=== PATIENT | female | born 1985 | race Caucasian/White ===

== ENCOUNTER 2016-09-28 12:17 | Emergency (ER) | payer OTHER ==
[~2016-09-28] VITALS: Ht 160 cm; Wt 88.1 kg
[2016-09-28 12:19] VITALS: BP 136/89
== END 2016-09-28 13:19 | disposition home or self-care (01) ==
LOC: ED 13:11
DX: B34.9 Viral infection, unspecified (principal); Z90.49 Acquired absence of other specified parts of digestive tract
CPT/HCPCS: 99282

== ENCOUNTER 2016-12-02 08:41 | Emergency (ER) | payer OTHER ==
[~2016-12-02] VITALS: Ht 157.5 cm; Wt 87.7 kg
[2016-12-02 10:43] VITALS: BP 134/100
[2016-12-02 11:00] LABS: BLOOD UREA NITROGEN 9 mg/dL (7-18)
== END 2016-12-02 11:40 | disposition home or self-care (01) ==
LOC: ED 11:34
DX: M54.12 Radiculopathy, cervical region (principal)
CPT/HCPCS: 36415; 80048; 82040; 84703; 85025; 93005; 93970; 99285

== ENCOUNTER → 2017-01-13 | Outpatient (CLI) | payer OTHER ==
[2017-01-13 10:40] LABS: ASPARTATE AMINO TRANSFERASE 28 U/L (15-37); BLOOD UREA NITROGEN 7 mg/dL (7-18)
== END | disposition home or self-care (01) ==
LOC: LAB 10:16
PROVIDERS: ATTEND Physician Assistant Medical
DX: R53.83 Other fatigue (principal); M79.606 Pain in leg, unspecified
CPT/HCPCS: 36415; 80053; 84439; 84443; 85025

== ENCOUNTER → 2017-03-30 | Outpatient (CLI) | payer OTHER | END | disposition home or self-care (01) | LOC: CFH 08:22 | DX: N83.201 Unspecified ovarian cyst, right side (principal) | CPT/HCPCS: 36415; 76830; 83001; 83002; 83036; 84146; 84443 ==

== ENCOUNTER 2017-05-29 07:30 | Emergency (ER) | payer OTHER ==
[~2017-05-29] VITALS: Ht 160 cm; Wt 91.2 kg
[2017-05-29 07:32] VITALS: BP 125/87
[2017-05-29] MEDS ORDERED: SODIUM CHLORIDE 0.9% 1,000ML IVBOLUS ONE (08:00)
[2017-05-29 08:33] LABS: HEMATOCRIT 40.5 % (34.6-47.8); HEMOGLOBIN 13.9 g/dL (11.7-16.4); WHITE BLOOD COUNT 5.9 x10^3/uL (3.4-10)
[2017-05-29 08:44] LABS: ASPARTATE AMINO TRANSFERASE 34 U/L (15-37); BLOOD UREA NITROGEN 7 mg/dL (7-18)
== END 2017-05-29 09:59 | disposition home or self-care (01) ==
LOC: ED 08:44
DX: I88.9 Nonspecific lymphadenitis, unspecified (principal)
CPT/HCPCS: 36415; 71020; 80053; 83690; 84702; 84703; 85025; 99285

== ENCOUNTER 2017-06-09 18:25 | Emergency (ER) | payer OTHER ==
[~2017-06-09] VITALS: Ht 157.5 cm; Wt 90.5 kg
[2017-06-09 19:19] LABS: BASOPHILS # (AUTO) 0.07 x10^3/uL (0-0.1); BASOPHILS % (AUTO) 1 % (0-1); EOSINOPHILS # (AUTO) 0.04 x10^3/uL (0-0.4); EOSINOPHILS % (AUTO) 1 % (1-7); LYMPHOCYTES # (AUTO) 2.92 x10^3/uL (1-3.4); LYMPHOCYTES % (AUTO) 38 % (22-44); MD NO; MEAN CORPUSCULAR HEMOGLOBIN 31.6 pg (27.0-34.8); MEAN CORPUSCULAR HGB CONC 34.4 g/dL (32.4-35.8); MEAN CORPUSCULAR VOLUME 91.7 fL (80-100); MEAN PLATELET VOLUME 9.4 fL (7.4-10.4); MONOCYTES # (AUTO) 0.46 x10^3/uL (0.2-0.8); MONOCYTES % (AUTO) 6 % (2-9); NEUTROPHILS # (AUTO) 4.21 x10^3/uL (1.8-6.8); NEUTROPHILS % (AUTO) 55 % (42-75); PLATELET COUNT 315 x10^3/uL (130-400); RED BLOOD COUNT 4.43 x10^6/uL (3.82-5.3); RED CELL DISTRIBUTION WIDTH 13.4 % (9.6-15.2)
[2017-06-09 19:27] LABS: ANION GAP 6 mmol/L (5-15); CALCIUM 8.9 mg/dL (8.5-10.1); CHLORIDE 106 mmol/L (98-107)
[2017-06-09 19:57] LABS: MICROSCOPIC NOT IND
[2017-06-09 20:00] VITALS: BP 120/82
[2017-06-09 20:40] LABS: CULTURE INDICATED? NO
== END 2017-06-09 20:02 | disposition home or self-care (01) ==
LOC: ED 20:00
DX: O03.9 Complete or unspecified spontaneous abortion without complication (principal)
CPT/HCPCS: 36415; 76856; 80048; 81003; 82040; 84702; 85025; 86901; 99285

== ENCOUNTER → 2017-06-19 | Outpatient (CLI) | payer OTHER ==
[2017-06-19 16:00] LABS: BASOPHILS # (AUTO) 0.04 x10^3/uL (0-0.1); BASOPHILS % (AUTO) 1 % (0-1); EOSINOPHILS # (AUTO) 0.03 x10^3/uL (0-0.4); EOSINOPHILS % (AUTO) 0 % (1-7); LYMPHOCYTES # (AUTO) 2.46 x10^3/uL (1-3.4); LYMPHOCYTES % (AUTO) 32 % (22-44); MD NO; MEAN CORPUSCULAR HEMOGLOBIN 31.4 pg (27.0-34.8); MEAN CORPUSCULAR HGB CONC 34.3 g/dL (32.4-35.8); MEAN CORPUSCULAR VOLUME 91.6 fL (80-100); MEAN PLATELET VOLUME 9.3 fL (7.4-10.4); MONOCYTES # (AUTO) 0.44 x10^3/uL (0.2-0.8); MONOCYTES % (AUTO) 6 % (2-9); NEUTROPHILS # (AUTO) 4.64 x10^3/uL (1.8-6.8); NEUTROPHILS % (AUTO) 61 % (42-75); PLATELET COUNT 307 x10^3/uL (130-400); RED BLOOD COUNT 4.48 x10^6/uL (3.82-5.3); RED CELL DISTRIBUTION WIDTH 13.1 % (9.6-15.2)
[2017-06-19 16:11] LABS: ALANINE AMINOTRANSFERASE 50 U/L (12-78); ALBUMIN 3.9 g/dL (3.4-5.0); ANION GAP 8 mmol/L (5-15); CALCIUM 8.5 mg/dL (8.5-10.1); CHLORIDE 107 mmol/L (98-107); CREATININE 0.89 mg/dL (0.55-1.02)
[2017-06-19 16:21] LABS: ALKALINE PHOSPHATASE 79 U/L (45-117); BILIRUBIN,TOTAL 0.6 mg/dL (0.2-1.0); TOTAL PROTEIN 7.1 g/dL (6.4-8.2)
== END ==
LOC: LAB 15:37
DX: R22.0 Localized swelling, mass and lump, head (principal)
CPT/HCPCS: 36415; 80053; 84443; 85025

== ENCOUNTER → 2017-06-29 | Outpatient (CLI) | payer OTHER | END | disposition home or self-care (01) | LOC: CFH 07:51 | DX: R22.0 Localized swelling, mass and lump, head (principal) | CPT/HCPCS: 76536 ==

== ENCOUNTER → 2017-06-29 | Outpatient (CLI) | payer OTHER ==
[2017-06-29 14:18] LABS: BASOPHILS # (AUTO) 0.11 x10^3/uL (0-0.1); BASOPHILS % (AUTO) 1 % (0-1); EOSINOPHILS # (AUTO) 0.05 x10^3/uL (0-0.4); EOSINOPHILS % (AUTO) 1 % (1-7); LYMPHOCYTES # (AUTO) 2.78 x10^3/uL (1-3.4); LYMPHOCYTES % (AUTO) 34 % (22-44); MD NO; MEAN CORPUSCULAR HEMOGLOBIN 31.7 pg (27.0-34.8); MEAN CORPUSCULAR HGB CONC 34.7 g/dL (32.4-35.8); MEAN CORPUSCULAR VOLUME 91.5 fL (80-100); MEAN PLATELET VOLUME 9.6 fL (7.4-10.4); MONOCYTES # (AUTO) 0.45 x10^3/uL (0.2-0.8); MONOCYTES % (AUTO) 6 % (2-9); NEUTROPHILS # (AUTO) 4.79 x10^3/uL (1.8-6.8); NEUTROPHILS % (AUTO) 59 % (42-75); PLATELET COUNT 319 x10^3/uL (130-400); RED BLOOD COUNT 4.47 x10^6/uL (3.82-5.3); RED CELL DISTRIBUTION WIDTH 13.3 % (9.6-15.2)
== END | disposition home or self-care (01) ==
LOC: LAB 13:57
PROVIDERS: ATTEND Specialist
DX: O02.1 Missed abortion (principal)
CPT/HCPCS: 36415; 84702; 85025

== ENCOUNTER 2017-07-06 11:03 | Day surgery (SDC) | payer OTHER ==
[~2017-07-06] VITALS: Ht 160 cm; Wt 90.4 kg
[2017-07-06 11:52] VITALS: BP 124/89
[2017-07-06] MEDS ORDERED: LACTATED RINGERS 1,000 ML IV SCH (12:01)
[2017-07-06] MEDS ORDERED: LIDOCAINE 1%, 2ML ONE (12:10)
[2017-07-06] MEDS ORDERED: MISOPROSTOL 200 MCG TABLET ONE (12:18)
[2017-07-06] MEDS ORDERED: OXYTOCIN 10 UNITS/ML, 1ML ONE (12:18)
[2017-07-06] MEDS ORDERED: METHYLERGONOVINE 0.2 MG/ML IM ONE (12:18)
[2017-07-06] MEDS ORDERED: no home meds (12:26)
[2017-07-06] MEDS ORDERED: LIDOCAINE 1%, 2ML SQ PRN (12:30)
[2017-07-06] MEDS ORDERED: MIDAZOLAM 1 MG/ML, 2ML ONE (13:01)
[2017-07-06] MEDS ORDERED: FENTANYL PF 100 MCG/2ML ONE ×2 (13:01→14:50)
[2017-07-06] MEDS ORDERED: KETOROLAC 30 MG/1 ML ONE (13:58)
[2017-07-06] MEDS ORDERED: PROPOFOL 10 MG/ML, 20ML ONE (14:16)
[2017-07-06] MEDS ORDERED: DEXAMETHASONE 4 MG/ML, 1ML ONE (14:16)
[2017-07-06] MEDS ORDERED: ONDANSETRON 2MG/ML, 2ML ONE (14:16)
[2017-07-06] MEDS ORDERED: ACETAMINOPHEN 650 MG/20.3 ML UDC ONE (14:50)
[2017-07-06] MEDS ORDERED: OXYcodone 5 MG/5 ML ORAL.SOL UDC ONE (14:50)
[2017-07-06] MEDS: FENTANYL PF 100 MCG/2ML IV PRN ×2 (14:52→15:33)
[2017-07-06] MEDS ORDERED: ALBUTEROL SULFATE 2.5 MG/3 ML NPPB PRN (15:00)
[2017-07-06] MEDS ORDERED: ONDANSETRON 2MG/ML, 2ML IVPush PRN (15:00)
[2017-07-06] MEDS ORDERED: HYDROcodone/APAP 7.5-325MG/15ML UDC PO PRN (15:00)
[2017-07-06] MEDS ORDERED: ACETAMINOPHEN 325 MG TABLET PO PRN (15:00)
[2017-07-06] MEDS ORDERED: METOPROLOL 1 MG/ML, 5ML IV PRN (15:00)
[2017-07-06] MEDS ORDERED: OXYcodone 5 MG/5 ML ORAL.SOL UDC PO PRN (15:00)
[2017-07-06] MEDS ORDERED: hydrALAzine 20 MG/ML, 1ML IV PRN (15:00)
[2017-07-06] MEDS ORDERED: MIDAZOLAM 1 MG/ML, 2ML IV PRN (15:00)
[2017-07-06] MEDS ORDERED: EPHEDRINE 50 MG/ML, 1ML IVPush PRN (15:00)
[2017-07-06] MEDS ORDERED: LABETALOL 5MG/ML, 20ML IV PRN (15:00)
[2017-07-06] MEDS ORDERED: HYDROmorphone 1 MG/ML, 1ML IV PRN (15:00)
[2017-07-06] MEDS ORDERED: PROMETHAZINE 25 MG/ML, 1ML IV PRN (15:00)
[2017-07-06] MEDS ORDERED: MEPERIDINE/PF 25MG/0.5ML IVPush PRN (15:00)
[2017-07-06] MEDS ORDERED: DIAZEPAM 5 MG/ML, 2ML IVPush PRN (15:00)
== END 2017-07-06 17:30 ==
LOC: OUT 11:03
PROVIDERS: ATTEND Specialist
DX: N85.00 Endometrial hyperplasia, unspecified (principal)
CPT/HCPCS: 58120; 88305; J1100; J1885; J2250; J2405; J2590; J2704; J3010; J3490; J7120; J2210

== ENCOUNTER 2017-08-09 17:13 | Emergency (ER) | payer OTHER ==
[~2017-08-09] VITALS: Ht 157.5 cm; Wt 89.5 kg
[~2017-08-09 17:13] MED LIST: no home meds
[2017-08-09] MEDS ORDERED: SODIUM CHLORIDE 0.9% 1,000ML IVBOLUS ONE (18:00)
[2017-08-09 18:23] LABS: RAPID INFLUENZA A POSITIVE (Negative); RAPID INFLUENZA B Negative (Negative)
[2017-08-09 18:23] LABS: BASOPHILS # (AUTO) 0.03 x10^3/uL (0-0.1); BASOPHILS % (AUTO) 1 % (0-1); EOSINOPHILS # (AUTO) 0.05 x10^3/uL (0-0.4); EOSINOPHILS % (AUTO) 1 % (1-7); LYMPHOCYTES # (AUTO) 1.61 x10^3/uL (1-3.4); LYMPHOCYTES % (AUTO) 34 % (22-44); MD NO; MEAN CORPUSCULAR HEMOGLOBIN 31.6 pg (27.0-34.8); MEAN CORPUSCULAR HGB CONC 34.5 g/dL (32.4-35.8); MEAN CORPUSCULAR VOLUME 91.6 fL (80-100); MEAN PLATELET VOLUME 9.6 fL (7.4-10.4); MONOCYTES % (AUTO) 9 % (2-9); NEUTROPHILS # (AUTO) 2.62 x10^3/uL (1.8-6.8); NEUTROPHILS % (AUTO) 56 % (42-75); PLATELET COUNT 302 x10^3/uL (130-400); RED CELL DISTRIBUTION WIDTH 13.6 % (9.6-15.2)
[2017-08-09 18:30] LABS: ALBUMIN 3.9 g/dL (3.4-5.0); ANION GAP 8 mmol/L (5-15); CALCIUM 8.4 mg/dL (8.5-10.1); CHLORIDE 106 mmol/L (98-107); CREATININE 1.12 mg/dL (0.55-1.02)
[2017-08-09] MEDS ORDERED: ONDANSETRON 2MG/ML, 2ML ONE (19:29)
[2017-08-09] MEDS ORDERED: OSELTAMIVIR 75 MG CAPSULE PO ONE (19:30)
[2017-08-09] MEDS ORDERED: ONDANSETRON 2MG/ML, 2ML IVPush ONE (19:30)
[2017-08-09 20:38] LABS: MICROSCOPIC AUTO
[2017-08-09 20:39] LABS: CULTURE INDICATED? NO
[2017-08-09 21:14] VITALS: BP 114/73
== END 2017-08-09 21:21 | disposition home or self-care (01) ==
LOC: ED 21:15
DX: J10.1 Influenza due to other identified influenza virus with other respiratory manifestations (principal); J06.9 Acute upper respiratory infection, unspecified
CPT/HCPCS: 36415; 71046; 80048; 81001; 82040; 84703; 85025; 87400; 96361; 96374; 99285; J2405; J7030

== ENCOUNTER 2017-12-05 11:18 | Emergency (ER) | payer OTHER ==
[~2017-12-05] VITALS: Ht 160 cm; Wt 90.3 kg
[2017-12-05 11:56] VITALS: BP 111/68
[2017-12-05 12:11] LABS: MICROSCOPIC AUTO
[2017-12-05 12:12] LABS: BASOPHILS # (AUTO) 0.04 x10^3/uL (0-0.1); BASOPHILS % (AUTO) 1 % (0-1); EOSINOPHILS # (AUTO) 0.06 x10^3/uL (0-0.4); EOSINOPHILS % (AUTO) 1 % (1-7); LYMPHOCYTES # (AUTO) 1.98 x10^3/uL (1-3.4); LYMPHOCYTES % (AUTO) 29 % (22-44); MD NO; MEAN CORPUSCULAR HEMOGLOBIN 31.4 pg (27.0-34.8); MEAN CORPUSCULAR HGB CONC 34.3 g/dL (32.4-35.8); MEAN CORPUSCULAR VOLUME 91.7 fL (80-100); MEAN PLATELET VOLUME 10.1 fL (7.4-10.4); MONOCYTES # (AUTO) 0.44 x10^3/uL (0.2-0.8); MONOCYTES % (AUTO) 7 % (2-9); NEUTROPHILS # (AUTO) 4.36 x10^3/uL (1.8-6.8); NEUTROPHILS % (AUTO) 63 % (42-75); PLATELET COUNT 265 x10^3/uL (130-400); RED BLOOD COUNT 4.33 x10^6/uL (3.82-5.3); RED CELL DISTRIBUTION WIDTH 13.4 % (9.6-15.2)
[2017-12-05 12:16] LABS: CULTURE INDICATED? YES
[2017-12-05 12:23] LABS: ALANINE AMINOTRANSFERASE 55 U/L (12-78); ALBUMIN 3.5 g/dL (3.4-5.0); ANION GAP 6 mmol/L (5-15); CALCIUM 8.4 mg/dL (8.5-10.1); CHLORIDE 108 mmol/L (98-107); CREATININE 0.86 mg/dL (0.55-1.02)
[2017-12-05 12:28] LABS: ALKALINE PHOSPHATASE 91 U/L (45-117); BILIRUBIN,TOTAL 0.5 mg/dL (0.2-1.0); TOTAL PROTEIN 6.8 g/dL (6.4-8.2)
== END 2017-12-05 13:28 | disposition home or self-care (01) ==
LOC: ED 12:26
DX: R10.32 Left lower quadrant pain (principal); R42 Dizziness and giddiness
CPT/HCPCS: 36415; 80053; 81001; 83690; 84703; 85025; 87086; 87147; 93005; 99285

== ENCOUNTER → 2018-03-13 | Outpatient (CLI) | payer OTHER | END | disposition home or self-care (01) | LOC: CFH 09:32 | PROVIDERS: ATTEND Specialist | DX: Z32.01 Encounter for pregnancy test, result positive (principal) | CPT/HCPCS: 36415; 84702 ==

== ENCOUNTER 2018-08-11 19:11 | Emergency (ER) | payer OTHER ==
[~2018-08-11] VITALS: Ht 165.1 cm; Wt 90.9 kg
[2018-08-11] MEDS ORDERED: SODIUM CHLORIDE FLUSH 10ML SYR IVF ONE ×2 (20:00→21:30)
[2018-08-11] MEDS ORDERED: ACETAMINOPHEN 500 MG TABLET PO ONE (20:00)
--- NOTE | 2018-08-11 20:00 | NUR ---
PT A&OX4, RESP EVEN & UNLABORED, SPEECH CLEAR, SKIN WNL. C/O FEVER, CHILLS, NAUSEA - STARTED YESTERDAY. TYLENOL - LAST DOSE YESTERDAY, ADVIL 600MG - LAST DOSE 1400 TODAY. LMP: 07/16/18
--- NOTE | 2018-08-11 20:04 | NUR ---
EKG BS. PT'S SPOUSE IN ROOM.
[2018-08-11 20:09] LABS: RAPID INFLUENZA A Negative (Negative); RAPID INFLUENZA B Negative (Negative)
--- NOTE | 2018-08-11 20:10 | NUR ---
LABS DRAWN. PT RESTING ON GURNEY W/ SIDE RAILS UP X2, CALL LIGHT W/IN REACH, EMESIS BAG ON LAP, SPOUSE IN ROOM.
[2018-08-11] MEDS ORDERED: ACETAMINOPHEN 500 MG TABLET ONE (20:13)
[2018-08-11 20:20] LABS: BASOPHILS # (AUTO) 0.02 x10^3/uL (0-0.1); BASOPHILS % (AUTO) 0 % (0-1); EOSINOPHILS % (AUTO) 0 % (1-7); LYMPHOCYTES # (AUTO) 0.87 x10^3/uL (1-3.4); LYMPHOCYTES % (AUTO) 10 % (22-44); MD NO; MEAN CORPUSCULAR HEMOGLOBIN 30.9 pg (27.0-34.8); MEAN CORPUSCULAR HGB CONC 33.7 g/dL (32.4-35.8); MEAN CORPUSCULAR VOLUME 91.5 fL (80-100); MEAN PLATELET VOLUME 9.8 fL (7.4-10.4); MONOCYTES # (AUTO) 0.18 x10^3/uL (0.2-0.8); MONOCYTES % (AUTO) 2 % (2-9); NEUTROPHILS % (AUTO) 88 % (42-75); PLATELET COUNT 223 x10^3/uL (130-400); RED BLOOD COUNT 4.45 x10^6/uL (3.82-5.3); RED CELL DISTRIBUTION WIDTH 13.3 % (9.6-15.2)
[2018-08-11 20:26] LABS: ALANINE AMINOTRANSFERASE 120 U/L (12-78); ALBUMIN 3.3 g/dL (3.4-5.0); ANION GAP 6 mmol/L (5-15); CALCIUM 7.9 mg/dL (8.5-10.1); CHLORIDE 110 mmol/L (98-107)
[2018-08-11 20:28] LABS: ALKALINE PHOSPHATASE 158 U/L (45-117); BILIRUBIN,TOTAL 0.7 mg/dL (0.2-1.0); TOTAL PROTEIN 6.7 g/dL (6.4-8.2)
[2018-08-11] MEDS ORDERED: ONDANSETRON 2MG/ML, 2ML ONE (21:16)
[2018-08-11] MEDS ORDERED: KETOROLAC 30 MG/1 ML ONE (21:28)
[2018-08-11] MEDS ORDERED: SODIUM CHLORIDE 0.9%, 500ML IVBOLUS ONE (21:30)
[2018-08-11] MEDS ORDERED: KETOROLAC 30 MG/1 ML IVPush ONE (21:30)
[2018-08-11] MEDS ORDERED: ONDANSETRON 2MG/ML, 2ML IVPush ONE (21:30)
[2018-08-11] MEDS ORDERED: SODIUM CHLORIDE 0.9% 1,000ML IVBOLUS ONE (21:30)
[2018-08-11 21:42] LABS: CULTURE INDICATED? YES; MICROSCOPIC INDICATED
--- NOTE | 2018-08-11 21:50 | NUR ---
TO CT PER CHITRA
[2018-08-11] MEDS ORDERED: CEFTRIAXONE PMX 1GM/50ML 50 ML IV ONE (22:00)
--- NOTE | 2018-08-11 22:03 | NUR ---
PT REPORT TO [facility]. PT CARE TRANSFERRED.
--- NOTE | 2018-08-11 22:05 | NUR ---
PT REPORT FROM CATHERINE ANDRES. THIS RN TO ASSUME CARE. PT IN CT. WILL HANG ABX PER MAR AFTER CT.
[2018-08-11] MEDS ORDERED: CEFTRIAXONE PMX 1GM/50ML 50 ML ONE (22:16)
[2018-08-11] MEDS ORDERED: OMNIPAQUE 350 MG/ML, 100ML BOTTLE ONE (22:31)
[2018-08-11 22:51] VITALS: BP 128/73
== END 2018-08-11 23:36 | disposition home or self-care (01) ==
LOC: ED 21:31
DX: N39.0 Urinary tract infection, site not specified (principal); B34.9 Viral infection, unspecified; R50.9 Fever, unspecified; R11.10 Vomiting, unspecified; R19.7 Diarrhea, unspecified
CPT/HCPCS: 36415; 71045; 71275; 74177; 80053; 81001; 84703; 85025; 87086; 87400; 93005; 96361; 96365; 96375; 99284; J0696; J1885; J7030; J7040; Q9967

== ENCOUNTER → 2018-10-11 | Outpatient (CLI) | payer OTHER | END | disposition home or self-care (01) | LOC: LAB 09:27 | PROVIDERS: ATTEND Obstetrics & Gynecology Reproductive Endocrinology | DX: E28.9 Ovarian dysfunction, unspecified (principal); E23.6 Other disorders of pituitary gland | CPT/HCPCS: 36415; 82397; 82670; 83001; 83002; 84146; 84443; 86762; 86900 ==

== ENCOUNTER → 2018-11-02 | Outpatient (CLI) | payer OTHER | END | disposition home or self-care (01) | LOC: LAB 07:54 | PROVIDERS: ATTEND Obstetrics & Gynecology Reproductive Endocrinology | DX: N91.2 Amenorrhea, unspecified (principal) | CPT/HCPCS: 36415; 84702 ==

== ENCOUNTER 2019-07-24 14:45 | Emergency (ER) | payer OTHER ==
[~2019-07-24] VITALS: Ht 160 cm; Wt 94.2 kg
[2019-07-24 15:24] LABS: HCG UR SG 1.021 (1.003-1.030); MICROSCOPIC NOT IND
[2019-07-24 15:28] LABS: CULTURE INDICATED? NO
--- NOTE | 2019-07-24 17:16 | NUR ---
FLOOR SANDER: NOT IN LOBBY @ [id number]
--- NOTE | 2019-07-24 20:51 | NUR ---
THIS IS A 34 YO FEMALE COMING IN FOR RLQ ABD PAIN RADIATED DOWN RIGHT LEG AND LOWER BACK PAIN RATED 10/10. PATIENT HAD UA COMPLETED WHILE WAITING IN [facility] AND HAD POSITIVE TEST, PATIENT IS A , PATIENT HAS HAD 3 MISCARRIAGES IN THE PAST TWO YEARS. LMP June, STATES IT WAS HEAVIER THAN NORMAL. PAIN HAS BEEN GOING ON FOR PAST TWO DAYS AND WORSENING. A&OX4, VSS, NAD NOTED, PATIENT PLACED IN HOSPITAL GOWN AND GIVEN BLANKET. UA COLLECTED. DENIES NEEDS AT THIS TIME.
--- NOTE | 2019-07-24 21:00 | NUR ---
PATIENT TO US
[2019-07-24 21:08] LABS: MICROSCOPIC NOT IND
[2019-07-24 21:12] LABS: CULTURE INDICATED? NO
[2019-07-24 21:23] VITALS: BP 114/75
[2019-07-24] MEDS ORDERED: ACETAMINOPHEN 500 MG TABLET ONE (21:28)
[2019-07-24] MEDS ORDERED: ACETAMINOPHEN 500 MG TABLET PO ONE (21:30)
--- NOTE | 2019-07-24 21:30 | NUR ---
PATIENT MEDICATED PER EMAR FOR HEADACHE. VSS, NAD, DENIES NEEDS AT THIS TIME.
[2019-07-24 21:31] LABS: BASOPHILS # (AUTO) 0.08 x10^3/uL (0-0.1); BASOPHILS % (AUTO) 1 % (0-1); EOSINOPHILS # (AUTO) 0.05 x10^3/uL (0-0.4); EOSINOPHILS % (AUTO) 1 % (1-7); LYMPHOCYTES # (AUTO) 2.39 x10^3/uL (1-3.4); LYMPHOCYTES % (AUTO) 31 % (22-44); MD NO; MEAN CORPUSCULAR HEMOGLOBIN 30.8 pg (27.0-34.8); MEAN CORPUSCULAR HGB CONC 34.2 g/dL (32.4-35.8); MEAN CORPUSCULAR VOLUME 90.1 fL (80-100); MEAN PLATELET VOLUME 9.6 fL (7.4-10.4); MONOCYTES # (AUTO) 0.47 x10^3/uL (0.2-0.8); MONOCYTES % (AUTO) 6 % (2-9); NEUTROPHILS # (AUTO) 4.74 x10^3/uL (1.8-6.8); NEUTROPHILS % (AUTO) 61 % (42-75); PLATELET COUNT 295 x10^3/uL (130-400); RED BLOOD COUNT 4.17 x10^6/uL (3.82-5.3); RED CELL DISTRIBUTION WIDTH 13.6 % (9.6-15.2)
[2019-07-24 21:37] LABS: ALANINE AMINOTRANSFERASE 46 U/L (12-78); ALBUMIN 3.3 g/dL (3.4-5.0); ANION GAP 6 mmol/L (5-15); CALCIUM 8.3 mg/dL (8.5-10.1); CHLORIDE 109 mmol/L (98-107)
[2019-07-24 21:42] LABS: ALKALINE PHOSPHATASE 90 U/L (45-117); BILIRUBIN,TOTAL 0.4 mg/dL (0.2-1.0); CREATININE 1.13 mg/dL (0.55-1.02); TOTAL PROTEIN 6.5 g/dL (6.4-8.2)
--- NOTE | 2019-07-24 22:41 | NUR ---
Patient/Caregiver given discharge instructions and they have confirmed that they understand the instructions. Patient ambulatory with steady gait.
== END 2019-07-24 22:43 | disposition home or self-care (01) ==
LOC: ED 19:10
DX: O26.891 Other specified pregnancy related conditions, first trimester (principal); R10.31 Right lower quadrant pain; Z3A.01 Less than 8 weeks gestation of pregnancy
CPT/HCPCS: 36415; 76801; 80053; 81003; 81025; 84702; 85025; 86901; 99284

== ENCOUNTER 2019-07-27 10:23 | Emergency (ER) | payer OTHER ==
[~2019-07-27] VITALS: Ht 160 cm; Wt 93.2 kg
[2019-07-27 10:37] VITALS: BP 136/90
--- NOTE | 2019-07-27 10:47 | NUR ---
PT HERE FOR FOLLOW UP ON HCG LEVELS, PT STATES POSITIVE TEST IN ED 3 DAYS AGO.
--- NOTE | 2019-07-27 10:56 | NUR ---
LAB AT BEDSIDE FOR DRAW.
[2019-07-27 11:08] LABS: BASOPHILS # (AUTO) 0.07 x10^3/uL (0-0.1); BASOPHILS % (AUTO) 1 % (0-1); EOSINOPHILS # (AUTO) 0.04 x10^3/uL (0-0.4); EOSINOPHILS % (AUTO) 1 % (1-7); LYMPHOCYTES % (AUTO) 28 % (22-44); MD NO; MEAN CORPUSCULAR HEMOGLOBIN 30.7 pg (27.0-34.8); MEAN CORPUSCULAR HGB CONC 33.3 g/dL (32.4-35.8); MEAN CORPUSCULAR VOLUME 92.1 fL (80-100); MEAN PLATELET VOLUME 9.2 fL (7.4-10.4); MONOCYTES # (AUTO) 0.39 x10^3/uL (0.2-0.8); MONOCYTES % (AUTO) 5 % (2-9); NEUTROPHILS # (AUTO) 5.44 x10^3/uL (1.8-6.8); NEUTROPHILS % (AUTO) 66 % (42-75); PLATELET COUNT 336 x10^3/uL (130-400); RED BLOOD COUNT 4.74 x10^6/uL (3.82-5.3); RED CELL DISTRIBUTION WIDTH 13.9 % (9.6-15.2)
[2019-07-27 11:16] LABS: ALANINE AMINOTRANSFERASE 59 U/L (12-78); ALBUMIN 3.6 g/dL (3.4-5.0); ANION GAP 7 mmol/L (5-15); CALCIUM 8.8 mg/dL (8.5-10.1); CHLORIDE 105 mmol/L (98-107); CREATININE 0.88 mg/dL (0.55-1.02)
[2019-07-27 11:33] LABS: ALKALINE PHOSPHATASE 92 U/L (45-117); BILIRUBIN,TOTAL 0.6 mg/dL (0.2-1.0); TOTAL PROTEIN 7.2 g/dL (6.4-8.2)
--- NOTE | 2019-07-27 12:04 | NUR ---
ALL RESULTS BACK AT THIS TIME, CHART UP FOR RECHECK.
--- NOTE | 2019-07-27 12:27 | NUR ---
PT TO US.
--- NOTE | 2019-07-27 13:04 | NUR ---
PT BACK FROM US.
--- NOTE | 2019-07-27 13:05 | NUR ---
ALL RESULTS BACK AT THIS TIME, CHART UP FOR RECHECK.
--- NOTE | 2019-07-27 13:22 | NUR ---
Patient/Caregiver given discharge instructions and they have confirmed that they understand the instructions. Patient ambulatory with steady gait.
== END 2019-07-27 13:38 | disposition home or self-care (01) ==
LOC: ED 10:57
DX: R10.84 Generalized abdominal pain (principal); Z32.01 Encounter for pregnancy test, result positive
CPT/HCPCS: 36415; 76801; 80053; 84702; 85025; 99284

== ENCOUNTER 2019-09-22 08:18 | Emergency (ER) | payer OTHER ==
[~2019-09-22] VITALS: Ht 160 cm; Wt 95.5 kg
[2019-09-22] MEDS ORDERED: ONDANSETRON 2MG/ML, 2ML IVPush ONE (09:00)
[2019-09-22] MEDS ORDERED: SODIUM CHLORIDE FLUSH 10ML SYR IVF ONE (09:00)
[2019-09-22 09:18] LABS: BASOPHILS # (AUTO) 0.03 x10^3/uL (0-0.1); BASOPHILS % (AUTO) 1 % (0-1); EOSINOPHILS # (AUTO) 0.01 x10^3/uL (0-0.4); EOSINOPHILS % (AUTO) 0 % (1-7); LYMPHOCYTES # (AUTO) 1.47 x10^3/uL (1-3.4); LYMPHOCYTES % (AUTO) 21 % (22-44); MD NO; MEAN CORPUSCULAR HEMOGLOBIN 31.7 pg (27.0-34.8); MEAN CORPUSCULAR HGB CONC 34.6 g/dL (32.4-35.8); MEAN CORPUSCULAR VOLUME 91.7 fL (80-100); MEAN PLATELET VOLUME 9.4 fL (7.4-10.4); MONOCYTES # (AUTO) 0.37 x10^3/uL (0.2-0.8); MONOCYTES % (AUTO) 5 % (2-9); NEUTROPHILS # (AUTO) 5.26 x10^3/uL (1.8-6.8); NEUTROPHILS % (AUTO) 74 % (42-75); PLATELET COUNT 270 x10^3/uL (130-400); RED BLOOD COUNT 4.41 x10^6/uL (3.82-5.3); RED CELL DISTRIBUTION WIDTH 13.9 % (9.6-15.2)
[2019-09-22 09:28] LABS: ANION GAP 8 mmol/L (5-15); CALCIUM 8.8 mg/dL (8.5-10.1); CHLORIDE 109 mmol/L (98-107); CREATININE 0.75 mg/dL (0.55-1.02)
[2019-09-22 09:29] LABS: ALANINE AMINOTRANSFERASE 20 U/L (12-78)
[2019-09-22 09:31] LABS: ALKALINE PHOSPHATASE 69 U/L (45-117); BILIRUBIN,TOTAL 0.4 mg/dL (0.2-1.0); TOTAL PROTEIN 6.7 g/dL (6.4-8.2)
[2019-09-22] MEDS ORDERED: ONDANSETRON 2MG/ML, 2ML ONE (09:34)
[2019-09-22] MEDS ORDERED: MORPHINE SULFATE 4 MG/ML, 1ML ONE ×2 (09:34→10:57)
[2019-09-22] MEDS: MORPHINE SULFATE 4 MG/ML, 1ML IVPush PRN ×2 (09:36→11:00)
--- NOTE | 2019-09-22 09:42 | NUR ---
PT HAS HAD ABDOMINAL PAIN FOR 1 WEEK. SYMPTOMS WORSENING TODAY. PT 1 WEEKS . STATES SHE HAS SOME CRAMPING, NO BLEEDING. DENIES N/V/D IV ESTABLISHED, MEDICATED PER ORDERS. VSS.
[2019-09-22 10:26] LABS: MICROSCOPIC NOT IND
--- NOTE | 2019-09-22 10:29 | NUR ---
PT AMBULATED TO BATHROOM W STEAD ASSIST. PT STILL IN PAIN BUT DENYING PAIN MEDS. VSS
[2019-09-22 10:30] LABS: CULTURE INDICATED? NO
[2019-09-22 10:45] VITALS: BP 125/76
--- NOTE | 2019-09-22 11:02 | NUR ---
MEDICATED FOR PAIN PER REQUEST
--- NOTE | 2019-09-22 12:00 | NUR ---
PT WILL RECEIVE ULTRSOUND THEN PLAN FOR DC. PT RESTING. NO OTHER NEEDS AT THIS TIME. VSS
--- NOTE | 2019-09-22 14:16 | NUR ---
pt d/c with d/c summary and referral to ob. pt verbalizes understanding. pt denies any other needs pertaining to this visit. pt ambulates with steady gait for d/c home.
== END 2019-09-22 14:26 | disposition home or self-care (01) ==
LOC: ED 08:48
DX: O20.0 Threatened abortion (principal); O26.891 Other specified pregnancy related conditions, first trimester; Z3A.13 13 weeks gestation of pregnancy; Z90.49 Acquired absence of other specified parts of digestive tract
CPT/HCPCS: 36415; 76801; 76830; 80053; 81003; 83690; 85025; 96374; 96375; 96376; 99285; J2270; J2405

== ENCOUNTER 2019-10-08 10:30 | Outpatient (CLI) | payer OTHER ==
[2019-10-08 11:03] LABS: BASOPHILS # (AUTO) 0.08 x10^3/uL (0-0.1); BASOPHILS % (AUTO) 1 % (0-1); EOSINOPHILS # (AUTO) 0.02 x10^3/uL (0-0.4); EOSINOPHILS % (AUTO) 0 % (1-7); LYMPHOCYTES % (AUTO) 22 % (22-44); MD NO; MEAN CORPUSCULAR HEMOGLOBIN 31.5 pg (27.0-34.8); MEAN CORPUSCULAR HGB CONC 34.4 g/dL (32.4-35.8); MEAN CORPUSCULAR VOLUME 91.7 fL (80-100); MEAN PLATELET VOLUME 10.2 fL (7.4-10.4); MONOCYTES # (AUTO) 0.27 x10^3/uL (0.2-0.8); MONOCYTES % (AUTO) 4 % (2-9); NEUTROPHILS # (AUTO) 4.68 x10^3/uL (1.8-6.8); NEUTROPHILS % (AUTO) 73 % (42-75); PLATELET COUNT 248 x10^3/uL (130-400); RED BLOOD COUNT 3.98 x10^6/uL (3.82-5.3)
[2019-10-08 11:09] LABS: ALANINE AMINOTRANSFERASE 19 U/L (12-78); ALBUMIN 2.9 g/dL (3.4-5.0); ANION GAP 8 mmol/L (5-15); CALCIUM 8.9 mg/dL (8.5-10.1); CHLORIDE 108 mmol/L (98-107); CREATININE 0.68 mg/dL (0.55-1.02)
[2019-10-08 11:11] LABS: ALKALINE PHOSPHATASE 67 U/L (45-117); BILIRUBIN,TOTAL 0.3 mg/dL (0.2-1.0); TOTAL PROTEIN 6.6 g/dL (6.4-8.2)
== END 2019-10-08 23:59 | disposition home or self-care (01) ==
LOC: LAB 10:30
PROVIDERS: ATTEND Obstetrics & Gynecology
DX: Z34.82 Encounter for supervision of other normal pregnancy, second trimester (principal); Z34.00 Encounter for supervision of normal first pregnancy, unspecified trimester
CPT/HCPCS: 36415; 80053; 82105; 82306; 82677; 84702; 85025; 86336; 86592; 86762; 86787; 86850; 86900; 87086; 87340; 87806; G0475

== ENCOUNTER 2019-10-31 11:01 | Outpatient (CLI) | payer OTHER ==
[2019-10-31 11:33] LABS: T4 (THYROXINE) 13.9 mcg/dL (4.8-13.9)
== END 2019-10-31 23:59 | disposition home or self-care (01) ==
LOC: LAB 11:01
PROVIDERS: ATTEND Internal Medicine Cardiovascular Disease
DX: R00.2 Palpitations (principal)
CPT/HCPCS: 36415; 84436; 84443; 84481

== ENCOUNTER 2019-12-30 17:15 | Outpatient (CLI) | payer OTHER ==
[2019-12-30 17:10] VITALS: BP 110/67
[2019-12-30 18:47] LABS: MICROSCOPIC INDICATED
[2019-12-30 19:22] LABS: BASOPHILS # (AUTO) 0.04 x10^3/uL (0-0.1); BASOPHILS % (AUTO) 1 % (0-1); EOSINOPHILS # (AUTO) 0.04 x10^3/uL (0-0.4); EOSINOPHILS % (AUTO) 1 % (1-7); LYMPHOCYTES # (AUTO) 1.92 x10^3/uL (1-3.4); LYMPHOCYTES % (AUTO) 24 % (22-44); MD NO; MEAN CORPUSCULAR HEMOGLOBIN 31.8 pg (27.0-34.8); MEAN CORPUSCULAR HGB CONC 33.6 g/dL (32.4-35.8); MEAN CORPUSCULAR VOLUME 94.5 fL (80-100); MEAN PLATELET VOLUME 10.1 fL (7.4-10.4); MONOCYTES # (AUTO) 0.48 x10^3/uL (0.2-0.8); MONOCYTES % (AUTO) 6 % (2-9); NEUTROPHILS # (AUTO) 5.56 x10^3/uL (1.8-6.8); NEUTROPHILS % (AUTO) 69 % (42-75); PLATELET COUNT 265 x10^3/uL (130-400); RED BLOOD COUNT 3.88 x10^6/uL (3.82-5.3)
[2019-12-30 19:32] LABS: ALBUMIN 2.6 g/dL (3.4-5.0); ANION GAP 5 mmol/L (5-15); CALCIUM 8.8 mg/dL (8.5-10.1); CHLORIDE 110 mmol/L (98-107)
[2019-12-30 19:35] LABS: ALANINE AMINOTRANSFERASE 30 U/L (12-78); ALKALINE PHOSPHATASE 115 U/L (45-117); BILIRUBIN,TOTAL 0.4 mg/dL (0.2-1.0); CREATININE 0.61 mg/dL (0.55-1.02); TOTAL PROTEIN 6.4 g/dL (6.4-8.2)
[2019-12-30] MEDS ORDERED: MAALOX/HYOSCYAMINE/LIDOCAINE 45 ML BTL PO STA (20:41)
[2019-12-30] MEDS ORDERED: ACETAMINOPHEN 325 MG TABLET ONE (20:44)
[2019-12-30] MEDS ORDERED: ACET-2065 PO (20:51)
[2019-12-30] MEDS ORDERED: ACET325T26 PO (20:51)
[2019-12-30] MEDS ORDERED: ACETAMINOPHEN 325 MG TABLET PO PRN (21:00)
== END 2019-12-30 21:10 | disposition home or self-care (01) ==
LOC: LDOP 17:15
PROVIDERS: ATTEND Obstetrics & Gynecology
DX: O26.892 Other specified pregnancy related conditions, second trimester (principal); O32.1XX0 Maternal care for breech presentation, not applicable or unspecified; R16.1 Splenomegaly, not elsewhere classified; R10.9 Unspecified abdominal pain; Z3A.27 27 weeks gestation of pregnancy; Z90.49 Acquired absence of other specified parts of digestive tract
CPT/HCPCS: 59025; 76700; 76815; 80053; 81001; 85025; 87086

== ENCOUNTER → 2020-01-02 | Outpatient (CLI) | payer OTHER ==
[~2020-01-02] MED LIST changes: +ACET-2065 PO; +ACET325T26 PO
[2020-01-02 11:11] LABS: BASOPHILS # (AUTO) 0.06 x10^3/uL (0-0.1); BASOPHILS % (AUTO) 1 % (0-1); EOSINOPHILS # (AUTO) 0.02 x10^3/uL (0-0.4); EOSINOPHILS % (AUTO) 0 % (1-7); LYMPHOCYTES # (AUTO) 1.44 x10^3/uL (1-3.4); LYMPHOCYTES % (AUTO) 20 % (22-44); MD NO; MEAN CORPUSCULAR HEMOGLOBIN 31.8 pg (27.0-34.8); MEAN CORPUSCULAR HGB CONC 33.4 g/dL (32.4-35.8); MEAN CORPUSCULAR VOLUME 95.2 fL (80-100); MEAN PLATELET VOLUME 10.2 fL (7.4-10.4); MONOCYTES # (AUTO) 0.24 x10^3/uL (0.2-0.8); MONOCYTES % (AUTO) 3 % (2-9); NEUTROPHILS # (AUTO) 5.58 x10^3/uL (1.8-6.8); NEUTROPHILS % (AUTO) 76 % (42-75); PLATELET COUNT 250 x10^3/uL (130-400); RED CELL DISTRIBUTION WIDTH 13.9 % (9.6-15.2)
== END | disposition home or self-care (01) ==
LOC: LAB 09:41
PROVIDERS: ATTEND Obstetrics & Gynecology
DX: Z34.82 Encounter for supervision of other normal pregnancy, second trimester (principal)
CPT/HCPCS: 36415; 82306; 82950; 85025; 86592

== ENCOUNTER 2020-03-26 13:29 | Inpatient (IN) | payer OTHER ==
[~2020-03-26] VITALS: Ht 160 cm; Wt 85.0 kg
[2020-04-01] MEDS ORDERED: NEWBORN KIT ONE (21:56)
[2020-04-01] MEDS ORDERED: OXYTOCIN 30U/ 0.9% NaCL 500ML 500 ML IV PRN (22:30)
[2020-04-01] MEDS ORDERED: CALCIUM CARBONATE 500 MG TAB.CHEW PO PRN (22:30)
[2020-04-01] MEDS: D5%-LACTATED RINGERS 1,000 ML IV SCH (22:30)
[2020-04-01] MEDS: LACTATED RINGERS 1,000 ML IV SCH (22:30)
[2020-04-01] MEDS ORDERED: ALUMINUM/MAG/SIMETHICONE 30 ML UDC PO PRN (22:30)
[2020-04-01] MEDS ORDERED: TERBUTALINE 1 MG/ML, 1ML IVPush PRN (22:30)
[2020-04-01] MEDS ORDERED: FENTANYL PF 100 MCG/2ML IV PRN (22:30)
[2020-04-01] MEDS ORDERED: TERBUTALINE 1 MG/ML, 1ML SQ PRN (22:30)
[2020-04-01] MEDS ORDERED: OXYTOCIN 30U/ 0.9% NaCL 500ML 500 ML IV ONE (22:30)
[2020-04-01] MEDS ORDERED: ONDANSETRON 2MG/ML, 2ML IVPush PRN (22:30)
[2020-04-01] MEDS ORDERED: CHOL500050 PO (22:40)
[2020-04-01] MEDS ORDERED: PREN1TAB79 PO (22:40)
[2020-04-01 22:41] VITALS: BP 109/71
[2020-04-01 23:05] LABS: BASOPHILS % (AUTO) 0 % (0-1); EOSINOPHILS % (AUTO) 1 % (1-7); LYMPHOCYTES % (AUTO) 24 % (22-44); MEAN CORPUSCULAR HEMOGLOBIN 31.5 pg (27.0-34.8); MEAN CORPUSCULAR HGB CONC 33.8 g/dL (32.4-35.8); MEAN PLATELET VOLUME 10.1 fL (7.4-10.4); MONOCYTES % (AUTO) 7 % (2-9); NEUTROPHILS % (AUTO) 69 % (42-75); PLATELET COUNT 247 x10^3/uL (130-400); RED CELL DISTRIBUTION WIDTH 14.2 % (9.6-15.2)
[2020-04-01 23:06] LABS: MD NO
[2020-04-01] MEDS ORDERED: MISOPROSTOL 25 MCG TABLET ONE ×2 (23:14→23:22)
[2020-04-01] MEDS: MISOPROSTOL 25 MCG TABLET VG PRN (23:28)
[2020-04-02] MEDS ORDERED: MISOPROSTOL 25 MCG TABLET ONE (03:52)
[2020-04-02] MEDS: MISOPROSTOL 25 MCG TABLET VG PRN (03:59)
[2020-04-02] MEDS: LACTATED RINGERS 1,000 ML IV SCH ×2 (03:59→14:30)
[2020-04-02] MEDS: D5%-LACTATED RINGERS 1,000 ML IV SCH ×2 (06:30→14:30)
[2020-04-02] MEDS ORDERED: OXYTOCIN 30U/ 0.9% NaCL 500ML 500 ML ONE ×2 (09:03→15:05)
[2020-04-02] MEDS ORDERED: MISOPROSTOL 200 MCG TABLET ONE (09:08)
[2020-04-02] MEDS ORDERED: LIDOCAINE 1%, 20ML ONE (09:08)
[2020-04-02] MEDS ORDERED: FENTANYL PF 100 MCG/2ML ONE ×4 (09:37→13:06)
[2020-04-02] MEDS: FENTANYL PF 100 MCG/2ML IVPush PRN ×5 (09:40→17:22)
[2020-04-02] MEDS ORDERED: IBUPROFEN 800 MG TABLET PO PRN (14:30)
[2020-04-02] MEDS ORDERED: ONDANSETRON 2MG/ML, 2ML IV PRN (14:30)
[2020-04-02] MEDS ORDERED: ACETAMINOPHEN 325 MG TABLET PO PRN (14:30)
[2020-04-02] MEDS ORDERED: OXYTOCIN 30U/ 0.9% NaCL 500ML 500 ML IV SCH (14:30)
[2020-04-02] MEDS ORDERED: HYDROcodone/APAP 5/325 TABLET PO PRN (14:30)
[2020-04-02] MEDS ORDERED: BISACODYL 10 MG SUPP PR PRN (14:30)
[2020-04-02] MEDS ORDERED: RHOGAM FROM BLOOD BANK 1 NOTE EA IM/IV ONE (14:30)
[2020-04-02] MEDS ORDERED: MISOPROSTOL 200 MCG TABLET PR PRN (14:30)
[2020-04-02] MEDS ORDERED: IBUPROFEN 600 MG TABLET ONE (14:31)
[2020-04-02] MEDS: IBUPROFEN 200 MG TABLET PO PRN (14:35)
[2020-04-02] MEDS ORDERED: OXYcodone/APAP 5/325MG TABLET ONE (15:12)
[2020-04-02] MEDS: OXYcodone/APAP 5/325MG TABLET PO PRN ×2 (15:14→19:56)
[2020-04-02 17:41] VITALS: BP 100/67
[2020-04-02 19:30] VITALS: BP 91/58
[2020-04-02] MEDS: DOCUSATE 100 MG CAPSULE PO PRN (19:56)
[2020-04-03] VITALS: BP 96/61
[2020-04-03 04:10] VITALS: BP 101/64
[2020-04-03] MEDS: IBUPROFEN 200 MG TABLET PO PRN ×2 (06:42→12:03)
[2020-04-03 07:20] VITALS: BP 97/68
[2020-04-03] MEDS: DOCUSATE 100 MG CAPSULE PO PRN (08:38)
[2020-04-03] MEDS: OXYcodone/APAP 5/325MG TABLET PO PRN ×2 (08:39→12:03)
[2020-04-03] MEDS ORDERED: DOCU-131 PO (08:47)
[2020-04-03] MEDS ORDERED: IBUP-1222 PO (08:47)
[2020-04-03] MEDS ORDERED: PRENATAL VIT/IRON/FA 1 EACH TABLET PO SCH (09:00)
[2020-04-03] MEDS ORDERED: FLU VACC QS2020-21(6MOS UP)/PF 60MCG/0.5 ML SYR IM ONE ×2 (09:00)
== END 2020-04-03 13:51 | disposition home or self-care (01) | DRG 806 ==
LOC: LDIP 04-01 22:07 → 2NW 04-02 16:38
PROVIDERS: ADMIT Obstetrics & Gynecology; ATTEND Obstetrics & Gynecology
PROC: 10E0XZZ Delivery of Products of Conception, External Approach (ICD-10-PCS; principal; 2020-04-02)
PROC: 3E0P7VZ Introduction of Hormone into Female Reproductive, Via Natural or Artificial Opening (ICD-10-PCS; 2020-04-02)
PROC: 3E0R3BZ Introduction of Anesthetic Agent into Spinal Canal, Percutaneous Approach (ICD-10-PCS; 2020-04-02)
PROC: 00HU33Z Insertion of Infusion Device into Spinal Canal, Percutaneous Approach (ICD-10-PCS; 2020-04-02)
PROC: 3E033VJ Introduction of Other Hormone into Peripheral Vein, Percutaneous Approach (ICD-10-PCS; 2020-04-02)
DX: O48.0 Post-term pregnancy (principal); O99.354 Diseases of the nervous system complicating childbirth; Z37.0 Single live birth; O69.81X0 Labor and delivery complicated by cord around neck, without compression, not applicable or unspecified; E55.9 Vitamin D deficiency, unspecified; O99.284 Endocrine, nutritional and metabolic diseases complicating childbirth; Z20.828 Contact with and (suspected) exposure to other viral communicable diseases; G43.909 Migraine, unspecified, not intractable, without status migrainosus; Z3A.41 41 weeks gestation of pregnancy; Z80.9 Family history of malignant neoplasm, unspecified; Z82.3 Family history of stroke; Z82.49 Family history of ischemic heart disease and other diseases of the circulatory system; Z83.3 Family history of diabetes mellitus
CPT/HCPCS: 36415; 85025; 86592; 86850; 86900; 87635; 90686; G0378; J3010; J2590; J7120

== ENCOUNTER → 2020-10-28 | Outpatient (CLI) | payer OTHER ==
[~2020-10-28] MED LIST changes: +CHOL500050 PO; +DOCU-131 PO; +IBUP-1222 PO; +PREN1TAB79 PO
[2020-10-28 09:43] LABS: BASOPHILS % (AUTO) 1 % (0-1); EOSINOPHILS % (AUTO) 0 % (1-7); LYMPHOCYTES % (AUTO) 31 % (22-44); MEAN CORPUSCULAR HEMOGLOBIN 30.7 pg (27.0-34.8); MEAN CORPUSCULAR HGB CONC 34.4 g/dL (32.4-35.8); MEAN PLATELET VOLUME 9.4 fL (7.4-10.4); MONOCYTES % (AUTO) 5 % (2-9); NEUTROPHILS % (AUTO) 63 % (42-75); PLATELET COUNT 308 x10^3/uL (130-400); RED BLOOD COUNT 4.46 x10^6/uL (3.82-5.3); RED CELL DISTRIBUTION WIDTH 13.9 % (9.6-15.2)
[2020-10-28 09:49] LABS: MD NO
[2020-10-28 09:52] LABS: ANION GAP 5 mmol/L (5-15); CALCIUM 8.9 mg/dL (8.5-10.1); CHLORIDE 108 mmol/L (98-107); CREATININE 0.87 mg/dL (0.55-1.02)
[2020-10-28 10:46] LABS: HCT (SEDRATE) 39.8 % (34.6-47.8)
== END | disposition home or self-care (01) ==
LOC: LAB 09:26
PROVIDERS: ATTEND Obstetrics & Gynecology
DX: F32.1 Major depressive disorder, single episode, moderate (principal); Z79.899 Other long term (current) drug therapy
CPT/HCPCS: 36415; 80048; 84443; 85025; 85651

== ENCOUNTER → 2020-11-17 | Outpatient (CLI) | payer OTHER | END | disposition home or self-care (01) | LOC: LAB 08:30 | PROVIDERS: ATTEND Obstetrics & Gynecology | DX: M48.07 Spinal stenosis, lumbosacral region (principal); M25.512 Pain in left shoulder; M25.532 Pain in left wrist | CPT/HCPCS: 72100 ==

== ENCOUNTER 2021-01-27 14:48 | Emergency (ER) | payer OTHER ==
[~2021-01-27] VITALS: Ht 167.6 cm; Wt 95.5 kg
[2021-01-27 15:19] VITALS: BP 117/80
--- NOTE | 2021-01-27 16:08 | NUR ---
VIRAL SWAB OBTAINED PER GUIDELINES-WALKED TO LAB
== END 2021-01-27 16:15 | disposition home or self-care (01) ==
LOC: ED 16:00
DX: Z20.822 Contact with and (suspected) exposure to COVID-19 (principal); Z90.49 Acquired absence of other specified parts of digestive tract
CPT/HCPCS: 99283; U0003; U0005

== ENCOUNTER 2021-03-02 14:16 | Emergency (ER) | payer BC, OTHER ==
[~2021-03-02] VITALS: Ht 165.1 cm; Wt 94.3 kg
[2021-03-02 14:50] LABS: MICROSCOPIC NOT IND
[2021-03-02 15:12] LABS: BASOPHILS % (AUTO) 0 % (0-1); EOSINOPHILS % (AUTO) 0 % (1-7); LYMPHOCYTES % (AUTO) 16 % (22-44); MEAN CORPUSCULAR HGB CONC 34.6 g/dL (32.4-35.8); MEAN PLATELET VOLUME 9.4 fL (7.4-10.4); MONOCYTES % (AUTO) 6 % (2-9); NEUTROPHILS % (AUTO) 78 % (42-75); PLATELET COUNT 307 x10^3/uL (130-400); RED CELL DISTRIBUTION WIDTH 13.7 % (9.6-15.2)
[2021-03-02 15:21] LABS: CHLORIDE 106 mmol/L (98-107)
[2021-03-02 15:31] LABS: ALBUMIN 3.7 g/dL (3.4-5.0); ALKALINE PHOSPHATASE 118 U/L (45-117); ANION GAP 8 mmol/L (5-15); BILIRUBIN,TOTAL 0.8 mg/dL (0.2-1.0); CALCIUM 8.4 mg/dL (8.5-10.1); CREATININE 0.94 mg/dL (0.55-1.02); TOTAL PROTEIN 7.6 g/dL (6.4-8.2)
[2021-03-02 15:39] LABS: ALANINE AMINOTRANSFERASE 45 U/L (12-78)
--- NOTE | 2021-03-02 17:11 | NUR ---
VSS. AMBULATORY BACK OUT TO LOBBY
--- NOTE | 2021-03-02 19:02 | NUR ---
PT TO ROOM FROM LOBBY
[2021-03-02] MEDS ORDERED: MORPHINE SULFATE 4 MG/ML, 1ML IVPush PRN (19:30)
[2021-03-02] MEDS ORDERED: ONDANSETRON 2MG/ML, 2ML IVPush ONE (19:30)
[2021-03-02] MEDS ORDERED: SODIUM CHLORIDE 0.9% 1,000ML IVBOLUS ONE (19:30)
[2021-03-02] MEDS ORDERED: SODIUM CHLORIDE FLUSH 10ML SYR IVF ONE (19:30)
[2021-03-02] MEDS ORDERED: MORPHINE SULFATE 4 MG/ML, 1ML ONE (19:40)
[2021-03-02] MEDS ORDERED: ONDANSETRON 2MG/ML, 2ML ONE (19:40)
[2021-03-02] MEDS ORDERED: OMNIPAQUE 350 MG/ML, 100ML BOTTLE ONE (20:32)
--- NOTE | 2021-03-02 21:38 | NUR ---
PT IN NAD AWAITING RECHECK
[2021-03-02 21:47] VITALS: BP 98/64
--- NOTE | 2021-03-02 22:02 | NUR ---
medicated per mar
== END 2021-03-02 22:30 | disposition home or self-care (01) ==
LOC: ED 15:00
DX: R10.84 Generalized abdominal pain (principal); R11.2 Nausea with vomiting, unspecified; R19.7 Diarrhea, unspecified; R10.33 Periumbilical pain; R00.0 Tachycardia, unspecified
CPT/HCPCS: 36415; 74177; 80053; 81003; 83690; 84703; 85025; 96374; 96375; 99285; J2270; J2405; J7030; Q9967